=== PATIENT | female | born 1995 | race African-American/Black ===

== ENCOUNTER 2022-04-02 18:17 | Outpatient (REF) | payer BC, SELFPAY ==
[2022-04-02 21:18] LABS: HCT 33.6 % (36.0-46.0); HGB 10.7 g/dL (11.2-15.7); MCH 25.7 pg (27.0-33.0); MCHC 31.8 % (32.0-36.0); MCV 81 fL (80-95); Platelet Count 250 10^3/uL (130-400); RBC 4.17 10^6/uL (3.93-5.22); RDW 16.4 % (11.7-14.6); RDW-SD 47.8 fL
[2022-04-02 21:40] LABS: ALT 14 U/L (14-59); AST 22 U/L (15-37); Albumin 3.9 g/dL (3.4-5.0); Alkaline Phosphatase 67 U/L (46-116); Anion Gap 7.8 mmol/L (3-11); BUN 8 mg/dL (7-18); Bilirubin, Total 0.3 mg/dL (0.2-1.0); CO2 26.2 mmol/L (21.0-32.0); CREATININE 0.8 mg/dL (0.55-1.02); Calcium 9.2 mg/dL (8.5-10.1); Chloride 106 mmol/L (98-107); Glucose 91 mg/dL (74-106); Potassium 4.2 mmol/L (3.5-5.1); Sodium 140 mmol/L (136-145); TSH (W/Ref FT4) 0.78 uIU/mL (0.36-3.74); Total Protein 8.2 g/dL (6.4-8.2)
== END 2022-04-02 18:18 | disposition home or self-care (01) ==
LOC: NCHCN 18:17
PROVIDERS: Visit Provider Family Medicine
DX: R53.83 Other fatigue (principal); F41.8 Other specified anxiety disorders; L93.0 Discoid lupus erythematosus
CPT/HCPCS: 80053; 85027; 84443